=== PATIENT | female | born 1980 | race Caucasian/White ===

== ENCOUNTER → 2016-11-20 | Outpatient (CLI) | payer BC ==
[~2016-11-20] MED LIST: ASPIRIN CHILDRE81 MG PO; ORTHO TRI-CYCL1 EACH PO; PNV-TOTAL1 SGL; PROPRANOLOL HCL20 M1 PO
[2016-11-20 10:35] LABS: LYMPH # 2.3 K/mm3 (0.7-4.5); LYMPH % 47.8 % (10-50.0)
[2016-11-20 14:34] LABS: BUN 9 mg/dL (7-18)
[2016-11-20 14:38] LABS: GFR (ESTIMATED) 96 ML/MIN (59-)
== END ==
LOC: LAB 10:19
PROVIDERS: Nurse Practitioner Family
DX: R00.2 Palpitations (principal); Z00.00 Encounter for general adult medical examination without abnormal findings

== ENCOUNTER → 2017-01-30 | Outpatient (CLI) | payer BC ==
--- NOTE | 2017-02-04 07:54 | RADIOLOGY REPORT PS360 ---
DIG MAMM-SCREEN ELLI W/CAD CAD Screening COMPARISON: Digital mammograms 07/11/2013 INDICATION: There is a history of breast cancer in patient's mother diagnosed in her 50s TECHNIQUE: Standard CC and MLO images were obtained. R2 CAD reviewed. FINDINGS: Moderate scattered fiber glandular densities are seen in both breasts. There are stable slightly increased fibroglandular densities in the upper outer quadrant left breast. There is no new or suspicious lesion in either breast and there are no suspicious microcalcifications IMPRESSION: Stable exam with no suspicious lesion seen recommend yearly follow-up] in view of Immediate family history of breast cancer BI-RADS CATEGORY: 1_Negative RECOMMENDED FOLLOWUP: 12M 12 MONTH FOLLOW-UP (A letter has been sent to the patient regarding results of the study.)
== END ==
LOC: RAD 09:00
DX: Z12.31 Encounter for screening mammogram for malignant neoplasm of breast (principal); N64.59 Other signs and symptoms in breast; Z80.3 Family history of malignant neoplasm of breast
CPT/HCPCS: G0202